=== PATIENT | male | born 1950 | race Caucasian/White ===

== ENCOUNTER 2019-04-04 06:40 | Day surgery (SDC) | payer OTHER ==
[~2019-04-04 06:40] MED LIST: LOTREL 5-20 MG1 CAP PO
[2019-04-04] MEDS ORDERED: TRAM1TAB98 PO (11:45)
[2019-04-04] MEDS ORDERED: DUI500 PO (11:45)
== END 2019-04-04 16:10 | disposition home or self-care (01) ==
LOC: CIR.AMB 06:40
DX: M70.32 Other bursitis of elbow, left elbow (principal); M70.22 Olecranon bursitis, left elbow

== ENCOUNTER 2019-04-25 06:10 | Day surgery (SDC) | payer OTHER ==
[~2019-04-25 06:10] MED LIST changes: +ALTACE5 MG PO; +DUI500 PO; +TRAM1TAB98 PO
[2019-04-25] MEDS ORDERED: OXYC1TAB9 PO (19:35)
[2019-04-25] MEDS ORDERED: DUI500 PO (19:35)
== END 2019-04-25 22:30 | disposition home or self-care (01) ==
LOC: CIR.AMB 06:10 → EDBD 08:15 → CIR.AMB 08:15 → ADM 08:15 → CIR.AMB 14:30
DX: S46.311A Strain of muscle, fascia and tendon of triceps, right arm, initial encounter (principal); M70.21 Olecranon bursitis, right elbow